=== PATIENT | male | born 1955 | race Caucasian/White ===

== ENCOUNTER 2018-01-04 10:57 | Inpatient (IN) | payer OTHER ==
[~2018-01-04] VITALS: Ht 180.3 cm; Wt 95.3 kg
[~2018-01-04 10:57] MED LIST: DOXAZOSIN MESYLA2 MG PO
== END 2018-01-06 08:43 | disposition home or self-care (01) | DRG 661 ==
LOC: CIR.AMB 10:57 → SURG 17:32
PROVIDERS: Urology
PROC: 0T778DZ Dilation of Left Ureter with Intraluminal Device, Via Natural or Artificial Opening Endoscopic (ICD-10-PCS; 2018-01-04)
PROC: BT1FZZZ Fluoroscopy of Left Kidney, Ureter and Bladder (ICD-10-PCS; 2018-01-04)
PROC: 0TC18ZZ Extirpation of Matter from Left Kidney, Via Natural or Artificial Opening Endoscopic (ICD-10-PCS; principal; 2018-01-04 08:30)
PROC: BT12YZZ Fluoroscopy of Left Kidney using Other Contrast (ICD-10-PCS; 2018-01-06)
DX: N20.0 Calculus of kidney (principal)